=== PATIENT | female | born 1955 | race Two or more races ===

== ENCOUNTER 2022-06-01 06:27 | Day surgery (SDC) | payer OTHER ==
[~2022-06-01] VITALS: Ht 162.6 cm; Wt 65.8 kg
[~2022-06-01 06:27] MED LIST: ATORVASTATIN CA10 MG PO; HUMIRA40 MG/0.2 IM; LEVOTHYROXINE25 MCG PO; PREDNISONE PO; SUCRALFATE1 GM PO; VITAMIN C100 MG PO; VITAMIN D PO
== END 2022-06-01 14:10 | disposition home or self-care (01) ==
LOC: CIR.AMB 06:27
PROVIDERS: ATTEND Orthopaedic Surgery
DX: M75.121 Complete rotator cuff tear or rupture of right shoulder, not specified as traumatic (principal); M75.21 Bicipital tendinitis, right shoulder; M75.111 Incomplete rotator cuff tear or rupture of right shoulder, not specified as traumatic; E78.5 Hyperlipidemia, unspecified; J45.909 Unspecified asthma, uncomplicated; Z88.8 Allergy status to other drugs, medicaments and biological substances; Z20.822 Contact with and (suspected) exposure to COVID-19; M19.90 Unspecified osteoarthritis, unspecified site